=== PATIENT | female | born 1930 | race Caucasian/White ===

== ENCOUNTER 2020-06-05 14:47 | Observation (INO) | payer BC, MEDICARE ==
--- NOTE | 2020-06-05 15:00 | ER Document Report ---
ED Medical Screen (RME) - General Chief Complaint: High Blood Pressure Stated Complaint: BLOOD PRESSURE PROBLEMS Time Seen by Provider: 06/05/20 14:53 Mode of Arrival: Medic Information source: Patient, Relative, Emergency Med Personnel Notes: 89-year-old female presents to ED for elevated blood pressure. She is on the monitor. While watching the patient she is having strips of 45 V. tach with her A. fib. Have informed Dr. Alan and did have rapid ventricular response while watching the monitor. Has gone into see the patient. I have greeted and performed a rapid initial assessment of this patient. A comprehensive ED assessment and evaluation of the patient, analysis of test results and completion of medical decision making process will be conducted by an additional ED providers.
[2020-06-05] MEDS ORDERED: LORAZEPAM INJ 2 MG/1 ML VIAL IV ONE (15:05)
[2020-06-05] MEDS ORDERED: LEVETIRACETAM 500 MG/NACL-ISO 500 MG/100 ML RTUPB IV ONE (15:15)
[2020-06-05] MEDS ORDERED: METOPROLOL TARTRATE PF/INJ 5 MG/5 ML SDV IV ONE (15:15)
--- NOTE | 2020-06-05 15:38 | ER Document Report ---
ED General <CARLOS GONZALEZGA - Last Filed: 06/05/20 19:08> - General Mode of Arrival: Medic Information source: Relative Cannot obtain history due to: Altered mental status TRAVEL OUTSIDE OF THE [place] IN LAST 30 DAYS: No - Related Data Home Medications: duloxetina, micardis, namentine, atorvestatin, metoprolol, levetirac, asa <VIVIAN CARTAGENA - Last Filed: 06/09/20 16:00> - General Chief Complaint: High Blood Pressure Stated Complaint: BLOOD PRESSURE PROBLEMS Time Seen by Provider: 06/05/20 14:53 - HPI Notes: This patient is a 89-year-old female who recently moved to our area from [place] to be with her family for the winter. She evidently gets her medications from a mail order pharmacy. There has been some delay in getting the address on that account change and so she has not had any of her medicines in several days. Her gzcjcujf-nq-psm is here and is providing some information. She is not intimately familiar with the patient's medical history. For example she did not know that the patient was on an anticoagulant (Pradaxa) nor did she know that the patient was on an antiseizure medication (Keppra), nor did she know that the patient had a seizure disorder. Unfortunately the patient is unable to tell us much more than she knows her name and she is not in pain. The gjtypobx-gi-ike reports that the patient's mental status has been altered since this morning. Other than that very little history is available at this time. (VIVIAN CARTAGENA) - Related Data Allergies/Adverse Reactions: No Known Drug Allergies Allergy (Verified 06/05/20 19:11) Past Medical History - General Information source: Patient, Relative, Emergency Med Personnel - Social History Smoking Status: Unknown if Ever Smoked Frequency of alcohol use: None Drug Abuse: None Family History: Reviewed & Not Pertinent Patient has homicidal ideation: No - Medical History Medical History: Other <VIVIAN CARTAGENA - Last Filed: 06/09/20 16:00> - Medical History Notes: The patient has documents with her that include a medication list, some medical problems including notes referring to a stroke and to seizures, and a document that is a DO NOT RESUSCITATE form that appears to be signed in the patient's own handwriting. Additionally on her check list of medical conditions it shows her as being memory impaired, having a stroke, vision impaired, being hearing impai red, and having a DO NOT RESUSCITATE form. (VIVIAN CARTAGENA) Review of Systems - Review of Systems -: Yes ROS unobtainable due to patient's medical condition <VIVIAN CARTAGENA - Last Filed: 06/09/20 16:00> Physical Exam <VIVIAN CARTAGENA - Last Filed: 06/09/20 16:00> - Vital signs Vitals: Resp BP Pulse Ox 24 H 196/118 H 88 L 06/05/20 14:51 06/05/20 14:51 06/05/20 14:51 - Notes Notes: General: This is a very elderly, slightly built, frail appearing woman who appears chronically ill. Vital signs and nursing documentation are reviewed. HEENT: Patient normocephalic without trauma. Extraocular movements appear grossly intact. Pupils are equally reactive to light. ENT exam is otherwise grossly normal. Neck: Supple no adenopathy. Lungs: Fair air entry bilaterally. Heart: Tachycardic, irregularly irregular rate and rhythm, significant heave and thrill, audible coarse low pitched holosystolic murmur heard across the precordium. Abdomen: Scaphoid soft nontender no masses. Extremities: 1+ edema in both extremities. Skin: Warm, dry, relatively poor turgor. Neuro: The patient is alert and will answer simple questions such as what her name is. She exhibits repetitive bursts of rhythmic twitching motions of both her left leg and foot and her left forearm and hand which appear to be partial motor seizures. These episodes last anywhere from 1 to 3 minutes seem to stop spontaneously and then recur. She has at this time will discharge with return precautions and follow-up recommendations. Verbal discharge instructions given a the bedside and opportunity for questions given. Medication warnings reviewed. Patient is in agreement with this plan and has verbalized understanding of return precautions and the need for primary care follow-up in the next 24-72 hours. Generalized seizure activity. She is not able to cooperate with neuro exam otherwise. (VIVIAN CARTAGENA) Course - Laboratory Results Result Diagrams: 06/05/20 15:28 06/05/20 15:28 <LOUISA GONZALEZ - Last Filed: 06/05/20 19:08> - Laboratory Results Result Diagrams: 06/06/20 08:04 06/06/20 08:04 Critical Laboratory Results Reviewed: No Critical Results - Radiology Results Critical Radiology Results Reviewed: No Critical Results <VIVIAN CARTAGENA - Last Filed: 06/09/20 16:00> - Re-evaluation Re-evalutation: 06/05/20 15:48 At this point is the end of my shift. Care of the patient was taken over by Dr. Gonzalez. (VIVIAN CARTAGENA) - Vital Signs Vital signs: Temp Pulse Resp BP Pulse Ox 97.3 F 86 15 127/92 H 95 06/06/20 14:00 06/06/20 14:00 06/06/20 14:00 06/06/20 14:00 06/06/20 14:00 - Laboratory Results Laboratory Results Interpreted: 06/05/20 06/05/20 15:28 15:28 Sodium 133.3 L Creatinine 0.50 L Glucose 146 H AST 67 H ALT 37 H Levetiracetam 1.8 L Discharge - Discharge Admitting Provider: Obayomi (Hospitalist) Unit Admitted: Medical Floor <LOUISA OGNZALEZ - Last Filed: 06/05/20 19:08> - Discharge Admitting Provider: Obayomi (Hospitalist) Unit Admitted: Medical Floor <VIVIAN CARTAGENA - Last Filed: 06/09/20 16:00> - Discharge Clinical Impression: Seizure Altered mental status Qualifiers: Altered mental status type: unspecified Qualified Code(s): R41.82 - Altered mental status, unspecified Condition: Stable Disposition: ADMITTED OBSERVATION
[2020-06-05 15:40] LABS: ABSOLUTE BASOPHILS # (AUTO) 0.1 10^3/uL (0.0-0.2); ABSOLUTE EOSINOPHILS # (AUTO) 0.1 10^3/uL (0.0-0.6); ABSOLUTE LYMPHOCYTES (AUTO) 1.6 10^3/uL (0.5-4.7); ABSOLUTE MONOCYTES (AUTO) 0.6 10^3/uL (0.1-1.4); ABSOLUTE NEUT (AUTO) 6.7 10^3/uL (1.7-8.2); BASOPHILS % (AUTO) 0.7 % (0-2); EOSINOPHILS % (AUTO) 0.6 % (0-6); HEMATOCRIT 38.1 % (36.0-47.0); HEMOGLOBIN 12.9 g/dL (12.0-15.5); MEAN CORPUSCULAR HEMOGLOBIN 31.9 pg (27.0-33.4); MEAN CORPUSCULAR HGB CONC 33.9 g/dL (32.0-36.0); MEAN CORPUSCULAR VOLUME 94 fl (80-97); MONOCYTES % (AUTO) 6.1 % (3-13); PLATELET COUNT 240 10^3/uL (150-450); RED BLOOD COUNT 4.05 10^6/uL (3.72-5.28); RED CELL DISTRIBUTION WIDTH 13.8 % (11.5-14.0); SEGMENTED NEUTROPHILS % (AUTO) 74.6 % (42-78); TOTAL CELLS COUNTED % (AUTO) 100 %
[2020-06-05 16:02] LABS: ALKALINE PHOSPHATASE 125 U/L (38-126); ANION GAP 5 (5-19); ASPARTATE AMINO TRANSFERASE 67 U/L (14-36); BILIRUBIN,DIRECT 0.1 mg/dL (0.0-0.4); BILIRUBIN,TOTAL 0.5 mg/dL (0.2-1.3); BLOOD UREA NITROGEN 10 mg/dL (7-20); CALCIUM 9.2 mg/dL (8.4-10.2); CARBON DIOXIDE 29 mmol/L (22-30); CHLORIDE 99 mmol/L (98-107); GLUCOSE 146 mg/dL (75-110); POTASSIUM 4.4 mmol/L (3.6-5.0); TOTAL PROTEIN 6.8 g/dL (6.3-8.2)
[2020-06-05 16:07] LABS: INTERNATIONAL RATION (INR) 0.99; PROTHROMBIN TIME 13.3 SEC (11.4-15.4)
--- NOTE | 2020-06-05 16:22 | RADIOLOGY REPORT (SQ) ---
EXAM DESCRIPTION: CHEST SINGLE VIEW IMAGES COMPLETED DATE/TIME: 06/05/2020 4:13 pm REASON FOR STUDY: Short of breath atrial fibrillation COMPARISON: None. EXAM PARAMETERS: NUMBER OF VIEWS: One view. TECHNIQUE: Single frontal radiographic view of the chest acquired. RADIATION DOSE: NA LIMITATIONS: None. FINDINGS: LUNGS AND PLEURA: No opacities, masses or pneumothorax. No pleural effusion. MEDIASTINUM AND HILAR STRUCTURES: No masses. Contour normal. HEART AND VASCULAR STRUCTURES: Heart normal in size. Normal vasculature. BONES: No acute findings. HARDWARE: None in the chest. OTHER: No other significant finding. IMPRESSION: NO ACUTE RADIOGRAPHIC FINDING IN THE CHEST. TECHNICAL DOCUMENTATION: JOB ID: [id number] 2010 [employer]- All Rights Reserved Reading location - IP/workstation name: [email or web address]
--- NOTE | 2020-06-05 16:51 | RADIOLOGY REPORT (SQ) ---
EXAM DESCRIPTION: CT HEAD WITHOUT IMAGES COMPLETED DATE/TIME: 06/05/2020 3:29 pm REASON FOR STUDY: seizure, confusion. COMPARISON: None. TECHNIQUE: Axial images acquired through the brain without intravenous contrast. Images reviewed wi th bone, brain and subdural windows. Additional sagittal and coronal reconstructions were generated. Images stored on PACS. All CT scanners at this facility use dose modulation, iterative reconstruction, and/or weight based d osing when appropriate to reduce radiation dose to as low as reasonably achievable (ALARA). [facility]: Dose Right [facility]: CareDose [facility]: Dose Right [facility]: Teradose 4D [facility]: [employer] RADIATION DOSE: CT Rad equipment meets quality standard of care and radiation dose reduction techniq ues were employed. CTDIvol: 53.2 mGy. DLP: 964 mGy-cm. mGy. LIMITATIONS: None. FINDINGS: VENTRICLES: Normal size and contour. CEREBRUM: No masses. No hemorrhage. No midline shift. No evidence for acute infarction. There is c hronic encephalomalacia and gliosis in the right temporoparietal region consistent with prior right M CA infarct. Moderate patchy periventricular, deep, and subcortical white matter hypodense attenuatio n consistent with moderate chronic small vessel ischemic change. Otherwise normal rubalcava-white matter differentiation. There is intracranial atherosclerosis. CEREBELLUM: No masses. No hemorrhage. No alteration of density. No evidence for acute infarction. EXTRAAXIAL SPACES: No fluid collections. No masses. ORBITS AND GLOBE: No intra- or extraconal masses. Normal contour of globe without masses. CALVARIUM: No fracture. PARANASAL SINUSES: No fluid or mucosal thickening. SOFT TISSUES: No mass or hematoma. OTHER: No other significant finding. IMPRESSION: 1. No acute intracranial hemorrhage, mass, or evidence of acute territorial infarct. 2. Chronic right MCA infarct. 3. Moderate chronic small vessel ischemic change and intracranial atherosclerosis. EVIDENCE OF ACUTE STROKE: NO. COMMENT: Quality ID # [id number]: Final reports with documentation of one or more dose reduction techniques (e.g., Automated exposure control, adjustment of the mA and/or kV according to patient size, use of iterative reconstruction technique) TECHNICAL DOCUMENTATION: JOB ID: [id number] 2010 [employer]- All Rights Reserved Reading location - IP/workstation name: [email or web address]
--- NOTE | 2020-06-05 17:59 | ER Document Report ---
Doctor's Note Notes: 06/05/20 17:56 Patient was signed out to me. She is visiting from out of town and has been without her chronic medications. History is provided by her olagdwlx-io-pas. I personally evaluated the patient. Her heart rate has improved to normal. Her blood pressure has also stabilized. Patient is postictal on exam, she does arouse to stimuli. I discussed all results with the [id number]. I recommended admission to the hospital for observation to make sure that she returns to normal. Patient is a DNR. Her first troponin is slightly elevated. Likely this is from her tachycardia. I repeated the troponin and an EKG. Repeat EKG shows atrial fibrillation at a rate of 93. PVCs present. QTc 443. No acute ST changes. I discussed with the hospitalist for admission.
[2020-06-05] MEDS ORDERED: IPRATROPIUM/ALBUTEROL 0.5-2.5 MG/3 ML AMPUL NEB PRN (18:08)
[2020-06-05] MEDS ORDERED: ACETAMINOPHEN 650 MG SUPP.RECT PR PRN (18:08)
[2020-06-05] MEDS ORDERED: DIAZEPAM INJ 10 MG/2 ML DISP.SYRIN IV PRN (18:36)
--- NOTE | 2020-06-05 18:36 | PDOC H&P ---
History of Present Illness Admission Date/PCP: June 05, 2020 Patient complains of: Patient presents to the emergency room apparently for unclear reasons as she is unable to provide any history due to her altered menta l status. Her ckctcbbx-sz-lfq is with her who states that patient has been altered since this morning other than that there are little history is available. History of Present Illness: RENETTA HASKINS is a 89 year old female Patient is actually visiting from [place]. She has pain in this area few days before and was scheduled to go back this weekend. She gets her mail from medications from a mail order and she has been out for the last 2 days. Review of the ED records show that patient presented with some medical information including a history of a stroke vision impairment hearing impaired and a DO NOT RESUSCITATE form that appeared to be signed in the patient's own handwriting. It appears that she was awake and alert when she came into the emergency room but she did appear to have some partial motor seizures with episodes lasting anywhere from 1 to 3 minutes she was given Keppra in the emergency room and actually by the time I saw her she was briskly postictal. It appears that she had also vomited during this time as the stretcher was soaked w ith emesis. She was also found to be in atrial tachycardia, supraventricular tachycardia with. PVCs and ST depression. Repeat EKG shows atrial fibrillation with a rate of about 93. It is unknown if patient has a prior history of atrial fibrillation initial troponin is slightly elevated at 0.0 60 and a repeat troponin is pending for the this evening in the emergency room and she received some metoprolol with a rate improving Past Medical History Neurological Medical History: Reports: Ischemic CVA, Seizures Past Surgical History Past Surgical History: Reports: Other - Unknown Social History Information Source: Relative Lives with: Family Smoking Status: Unknown if Ever Smoked - Advance Directive Resuscitation Status: Do Not Resuscitate Family History Family History: Other - Unknown Parental Family History Reviewed: No Children Family History Reviewed: No Sibling(s) Family History Reviewed.: No - Patient unable to provide any information Review of Systems ROS unobtainable: Due to mental status - Patient is currently postictal and family at bedside unable to provide information Physical Exam Vital Signs: Temp Pulse Resp BP Pulse Ox 21 H 147/94 H 96 06/05/20 15:50 06/05/20 15:50 06/05/20 15:50 Intake & Output 06/04/20 06/05/20 06/06/20 06:59 06:59 06:59 Intake Total 100 Balance 100 General appearance: PRESENT: no acute distress, thin - Elderly frail female Head exam: PRESENT: atraumatic Eye exam: PRESENT: PERRLA. ABSENT: scleral icterus Ear exam: PRESENT: normal external ear exam Mouth exam: PRESENT: moist Teeth exam: PRESENT: poor dentation Neck exam: ABSENT: carotid bruit, JVD, lymphadenopathy, thyromegaly Respiratory exam: PRESENT: clear to auscultation cedric, unlabored. ABSENT: rales, rhonchi, wheezes Cardiovascular exam: PRESENT: irregular rhythm. ABSENT: diastolic murmur, rubs, systolic murmur Pulses: PRESENT: normal dorsalis pedis pul Vascular exam: PRESENT: normal capillary refill GI/Abdominal exam: PRESENT: normal bowel sounds, soft. ABSENT: distended, guarding, mass, organolmegaly, rebound, tenderness Rectal exam: PRESENT: deferred Extremities exam: ABSENT: calf tenderness, clubbing, pedal edema Neurological exam: PRESENT: altered, other - Response to pain. ABSENT: motor sensory deficit Psychiatric exam: ABSENT: homicidal ideation, suicidal ideation Skin exam: PRESENT: dry, intact. ABSENT: cyanosis, rash Results Laboratory Results: 06/05/20 15:28 06/05/20 15:28 06/05/20 06/05/20 15:28 15:28 WBC 9.0 RBC 4.05 Hgb 12.9 Hct 38.1 MCV 94 MCH 31.9 MCHC 33.9 RDW 13.8 Plt Count 240 Seg Neutrophils % 74.6 Sodium 133.3 L Potassium 4.4 Chloride 99 Carbon Dioxide 29 Anion Gap 5 BUN 10 Creatinine 0.50 L Est GFR ( Amer) > 60 Glucose 146 H Calcium 9.2 Magnesium 2.0 Total Bilirubin 0.5 AST 67 H Alkaline Phosphatase 125 Total Protein 6.8 Albumin 4.0 06/05/20 15:28 Troponin I 0.062 Impressions: Chest X-Ray 06/05/20 14:56 IMPRESSION: NO ACUTE RADIOGRAPHIC FINDING IN THE CHEST. Head CT 06/05/20 15:23 IMPRESSION: 1. No acute intracranial hemorrhage, mass, or evidence of acute territorial infarct. 2. Chronic right MCA infarct. 3. Moderate chronic small vessel ischemic change and intracranial at herosclerosis. EVIDENCE OF ACUTE STROKE: NO. Assessment and Plan - Diagnosis (1) Seizure Is this a current diagnosis for this admission?: Yes (2) Atrial fibrillation with rapid ventricular response Is this a current diagnosis for this admission?: Yes (3) Do not resuscitate status Is this a current diagnosis for this admission?: Yes (4) Hypertensive urgency, malignant Is this a current diagnosis for this admission?: Yes - Plan Summary Summary: patient's information is complete however it appears that she had been out of her Keppra for a couple of days and she had suffered seizures in the emergency room at least. She was postictal at the time of my exam. He was given Keppra and she did not have an episode of vomiting. She will be kept n.p.o., placed on seizure precautions, will continue with Keppra IV, will have Ativan available as needed. Urinalysis will be checked and will follow up with repeat labs in a.m. At this time I see no evidence of any infection. Of course of concern is the episode of vomiting that she had and so we have to watch out for aspiration. No prophylactic take antibiotic needed at this time. Patient also noted to be in atrial fibrillation. It is unclear if this is new or not. She apparently is on Pradaxa chronically may be she does have a prior history Patient also has hypertensive emergency with endorgan damage. It is possible that uncontrolled blood pressure led to a breakthrough seizure. She did receive some metoprolol with improvement in her blood pressure. We will continue to monitor her. - Time Time Spent with patient: 25-34 minutes Medications reviewed and adjusted accordingly: Yes Anticipated Discharge Disposition: Home with Home Health Anticipated Discharge Timeframe: within 48 hours
--- NOTE | 2020-06-05 18:38 | Progress Note ---
Provider Note Provider Note: Troponin also noted to be elevated and this could be due to her acute illness and presentation as well as her tachycardia. Will follow serial troponins. Given patient's age and comorbidity DO NOT RESUSCITATE status I do not anticipate any further interventions planned
[2020-06-05] MEDS: METOPROLOL TARTRATE PF/INJ 5 MG/5 ML SDV IV SCH ×2 (19:44→23:15)
[2020-06-05 20:36] LABS: APPEARANCE,URINE SLIGHTLY-CLOUDY; BILIRUBIN,URINE NEGATIVE (NEGATIVE); GLUCOSE, URINE NEGATIVE (NEGATIVE); KETONES,URINE TRACE mg/dL (NEGATIVE); LEUKOCYTE ESTERASE,URINE NEGATIVE (NEGATIVE); NITRITE,URINE NEGATIVE (NEGATIVE); PROTEIN,URINE 100 mg/dL (NEGATIVE); URINE SPECIFIC GRAVITY 1.026
[2020-06-05 20:37] LABS: COLOR,URINE YELLOW
[2020-06-05] MEDS: ONDANSETRON HCL INJ/PF 4 MG/2 ML SDV IV PRN (21:42)
[2020-06-05] MEDS: NORMAL SALINE 1000 ML 1,000 ML IV PRN (22:06)
[2020-06-05] MEDS: LEVETIRACETAM 500 MG/NACL-ISO 500 MG/100 ML RTUPB IV SCH (22:06)
[2020-06-06] MEDS ORDERED: METOPROLOL TARTRATE PF/INJ 5 MG/5 ML SDV IV ONE (01:02)
[2020-06-06] MEDS ORDERED: ASPIRIN 81 MG TABLET, CHEWABLE PO ONE (03:10)
[2020-06-06] MEDS: METOPROLOL TARTRATE PF/INJ 5 MG/5 ML SDV IV SCH ×2 (05:45→11:08)
[2020-06-06] MEDS: ONDANSETRON HCL INJ/PF 4 MG/2 ML SDV IV PRN (06:13)
[2020-06-06 08:32] LABS: HEMATOCRIT 38.8 % (36.0-47.0); HEMOGLOBIN 12.9 g/dL (12.0-15.5); MEAN CORPUSCULAR HEMOGLOBIN 31.2 pg (27.0-33.4); MEAN CORPUSCULAR HGB CONC 33.3 g/dL (32.0-36.0); MEAN CORPUSCULAR VOLUME 94 fl (80-97); PLATELET COUNT 225 10^3/uL (150-450); RED BLOOD COUNT 4.13 10^6/uL (3.72-5.28); RED CELL DISTRIBUTION WIDTH 13.8 % (11.5-14.0); WHITE BLOOD COUNT 6.7 10^3/uL (4.0-10.5)
[2020-06-06 08:57] LABS: ANION GAP 8 (5-19); BLOOD UREA NITROGEN 12 mg/dL (7-20); CALCIUM 9.4 mg/dL (8.4-10.2); CARBON DIOXIDE 24 mmol/L (22-30); CHLORIDE 100 mmol/L (98-107); GLUCOSE 139 mg/dL (75-110)
[2020-06-06] MEDS ORDERED: PANTOPRAZOLE SODIUM 40 MG VIAL IV SCH (10:00)
[2020-06-06] MEDS ORDERED: ASPIRIN 81 MG TABLET, CHEWABLE PO SCH (10:00)
[2020-06-06] MEDS ORDERED: ENOXAPARIN SODIUM INJ 40 MG/0.4 ML DISP.SYRIN SUBCUT SCH (10:00)
[2020-06-06] MEDS: LEVETIRACETAM 500 MG/NACL-ISO 500 MG/100 ML RTUPB IV SCH (10:56)
[2020-06-06] MEDS: NORMAL SALINE 1000 ML 1,000 ML IV PRN (10:58)
[2020-06-06] MEDS ORDERED: ACETAMINOPHEN 325 MG TABLET ONE (11:27)
[2020-06-06] MEDS ORDERED: ACETAMINOPHEN 325 MG TABLET PO PRN (11:37)
[2020-06-06] MEDS ORDERED: LEVETIRACETAM 500 MG TABLET PO SCH (13:00)
--- NOTE | 2020-06-06 13:04 | PDOC DISCHARGE SUMMARY ---
Impression - Admit/DC Date/PCP Admission Date/Primary Care Provider: 06/05/20 19:08 Discharge Date: 06/06/20 - Discharge Diagnosis (1) Seizure Is this a current diagnosis for this admission?: Yes (2) Atrial fibrillation with rapid ventricular response Is this a current diagnosis for this admission?: Yes (3) Do not resuscitate status Is this a current diagnosis for this admission?: Yes (4) Hypertensive urgency, malignant Is this a current diagnosis for this admission?: Yes (5) Elevated troponin level Is this a current diagnosis for this admission?: Yes - Assessment Summary: patient's information is complete however it appears that she had been out of her Keppra for a couple of days and she had suffered seizures in the emergency room at least. She was postictal at the time of my exam. He was given Keppra and she did not have an episode of vomiting. She will be kept n.p.o., placed on seizure precautions, will continue with Keppra IV, will have Ativan available as needed. Urinalysis will be checked and will follow up with repeat labs in a.m. At this time I see no evidence of any infection. Of course of concern is the episode of vomiting that she had and so we have to watch out for aspiration. No prophylactic take antibiotic needed at this time. Patient also noted to be in atrial fibrillation. It is unclear if this is new or not. She apparently is on Pradaxa chronically may be she does have a prior history Patient also has hypertensive emergency with endorgan damage. It is possible that uncontrolled blood pressure led to a breakthrough seizure. She did receive some metoprolol with improvement in her blood pressure. We will continue to monitor her. - Additional Information Resuscitation Status: Do Not Resuscitate Discharge Activity: Activity As Tolerated Home Medications: Aspirin [Aspirin 81 mg Chewable Tablet] 81 mg PO DAILY 06/05/20 Atorvastatin Calcium [Lipitor 40 mg Tablet] 40 mg PO QHS 06/05/20 Digoxin 125 mcg PO .THREE TIMES A WEEK 06/05/20 Duloxetine HCl [Cymbalta 30 mg Capsule.dr] 30 mg PO DAILY 06/05/20 Levetiracetam [Keppra Xr 500 mg Tab.sr] 500 mg PO Q12 06/05/20 Memantine HCl [Namenda] 5 mg PO Q12 06/05/20 Metoprolol Tartrate [Lopressor 50 mg Tablet] 50 mg PO Q12 06/05/20 Rivaroxaban [Xarelto 15 mg Tablet] 15 mg PO DAILY 06/05/20 Telmisartan 40 mg PO DAILY 06/05/20 History of Present Illiness History of Present Illness: RENETTA HASKINS is a 89 year old female Patient is actually visiting from [place]. She has pain in this area few days before and was scheduled to go back this weekend. She gets her mail from medications from a mail order and she has been out for the last 2 days. Review of the ED records show that patient presented with some medical information including a history of a stroke vision impairment hearing impaired and a DO NOT RESUSCITATE form that appeared to be signed in the patient's own handwriting. It appears that she was awake and alert when she came into the emergency room but she did appear to have some partial motor seizures with episodes lasting anywhere from 1 to 3 minutes she was given Keppra in the emergency room and actually by the time I saw her she was briskly postictal. It appears that she had also vomited during this time as the stretcher was soaked with emesis. She was also found to be in atrial tachycardia, supraventricular tachycardia with. PVCs and ST depression. Repeat EKG shows atrial fibrillation with a rate of about 93. It is unknown if patient has a prior history of atrial fibrillation initial troponin is slightly elevated at 0.0 60 and a repeat troponin is pending for the this evening in the emergency room and she received some metoprolol with a rate improving Hospital Course Hospital Course: Patient was admitted with what appears to be partial epileptic seizures. She does have a history of seizure disorder. She had apparently been out of her medications for about 48 hours according to the family. She was also found to be in atrial fibrillation with a rapid ventricular response. This likely is secondary to patient being off her medications. Review of her medications indicate that she had been on digoxin as well as Xarelto and metoprolol which she had apparently missed. She was also found to be hypertensive emergency secondary to missing her medications. Patient was admitted in a post ictal state but she has had no further seizure activity once started on Keppra. She was treated with metoprolol and her blood pressure has been pretty much better controlled. Patient was found to have an elevated troponin. She has no symptoms of chest pain. It is possible that the elevated troponin is likely due to her atrial tachycardia. Hypertensive emergency and a seizure activity. Given patient's DNR status and the fact that she lacks any chest pain no acute intervention is being planned. I did discuss this with the family at the bedside. She will be encouraged to continue with her aspirin as per prehospitalization. Patient is awake and alert and appears to be back to her baseline mental status and at this point with no further interventions been planned in the hospital she has been discharged home Physical Exam Vital Signs: Temp Pulse Resp BP Pulse Ox 97.3 F 86 15 129/83 H 95 06/06/20 12:04 06/06/20 12:04 06/06/20 12:04 06/06/20 12:04 06/06/20 12:04 Intake & Output 06/05/20 06/06/20 06/07/20 06:59 06:59 06:59 Intake Total 200 965 Balance 200 965 Weight 47.7 kg General appearance: PRESENT: no acute distress, other - Elderly and frail Head exam: PRESENT: atraumatic, normocephalic Eye exam: PRESENT: conjunctiva pink, EOMI, PERRLA. ABSENT: scleral icterus Mouth exam: PRESENT: moist, tongue midline Neck exam: ABSENT: carotid bruit, JVD, lymphadenopathy, thyromegaly Respiratory exam: PRESENT: clear to auscultation cedric. ABSENT: rales, rhonchi, wheezes Cardiovascular exam: PRESENT: irregular rhythm, +S1, +S2. ABSENT: diastolic murmur, rubs, systolic murmur Pulses: PRESENT: normal dorsalis pedis pul Vascular exam: PRESENT: normal capillary refill GI/Abdominal exam: PRESENT: normal bowel sounds, soft. ABSENT: distended, guarding, mass, organolmegaly, rebound, tenderness Rectal exam: PRESENT: deferred Extremities exam: PRESENT: full ROM. ABSENT: calf tenderness, clubbing, pedal edema Neurological exam: PRESENT: alert, awake, oriented to person, oriented to place, oriented to time, oriented to situation, CN II-XII grossly intact. ABSENT: motor sensory deficit Psychiatric exam: PRESENT: appropriate affect, normal mood. ABSENT: homicidal ideation, suicidal ideation Skin exam: PRESENT: dry, intact, warm. ABSENT: cyanosis, rash Results Laboratory Results: WBC 6.7 10^3/uL (4.0-10.5) 06/06/20 08:04 RBC 4.13 10^6/uL (3.72-5.28) 06/06/20 08:04 Hgb 12.9 g/dL (12.0-15.5) 06/06/20 08:04 Hct 38.8 % (36.0-47.0) 06/06/20 08:04 MCV 94 fl (80-97) 06/06/20 08:04 MCH 31.2 pg (27.0-33.4) 06/06/20 08:04 MCHC 33.3 g/dL (32.0-36.0) 06/06/20 08:04 RDW 13.8 % (11.5-14.0) 06/06/20 08:04 Plt Count 225 10^3/uL (150-450) 06/06/20 08:04 Lymph % (Auto) 18.0 % (13-45) 06/05/20 15:28 [place] % (Auto) 6.1 % (3-13) 06/05/20 15:28 Eos % (Auto) 0.6 % (0-6) 06/05/20:28 Baso % (Auto) 0.7 % (0-2) 06/05/20 15:28 Absolute Neuts (auto) 6.7 10^3/uL (1.7-8.2) 06/05/20 15:28 Absolute Lymphs (auto) 1.6 10^3/uL (0.5-4.7) 06/05/20 15:28 Absolute Monos (auto) 0.6 10^3/uL (0.1-1.4) 06/05/20 15:28 Absolute Eos (auto) 0.1 10^3/uL (0.0-0.6) 06/05/20:28 Absolute Basos (auto) 0.1 10^3/uL (0.0-0.2) 06/05/20:28 Seg Neutrophils % 74.6 % (42-78) 06/05/20 15:28 Platelet Estimate Cancelled 06/06/20 07:16 PT 13.3 SEC (11.4-15.4) 06/05/20 15:28 INR 0.99 06/05/20 15:28 APTT 30.0 SEC (23.5-35.8) 06/05/20 15:28 Sodium 132.3 mmol/L (137-145) L 06/06/20 08:04 Potassium 5.0 mmol/L (3.6-5.0) 06/06/20 08:04 Chloride 100 mmol/L (98-107) 06/06/20 08:04 Carbon Dioxide 24 mmol/L (22-30) 06/06/20 08:04 Anion Gap 8 (5-19) 06/06/20 08:04 BUN 12 mg/dL (7-20) 06/06/20 08:04 Creatinine 0.58 mg/dL (0.52-1.25) 06/06/20 08:04 Est GFR ( Amer) > 60 (>60) 06/06/20 08:04 Est GFR (Non-Af Amer) Cancelled 06/06/20 07:16 Est GFR (MDRD) Non-Af > 60 (>60) 06/06/20 08:04 Glucose 139 mg/dL (75-110) H 06/06/20 08:04 Calcium 9.4 mg/dL (8.4-10.2) 06/06/20 08:04 Magnesium 1.9 mg/dL (1.6-2.3) 06/06/20 08:04 Total Bilirubin 0.5 mg/dL (0.2-1.3) 06/05/20 15:28 Direct Bilirubin 0.1 mg/dL (0.0-0.4) 06/05/20 15:28 Neonat Total Bilirubin Not Reportable 06/05/20 15:28 Neonat Direct Bilirubin Not Reportable 06/05/20 15:28 Neonat Indirect Bili Not Reportable 06/05/20 15:28 AST 67 U/L (14-36) H 06/05/20 15:28 ALT 37 U/L (<35) H 06/05/20 15:28 Alkaline Phosphatase 125 U/L (38-126) 06/05/20 15:28 Troponin I 1.470 ng/mL 06/06/20 08:04 Total Protein 6.8 g/dL (6.3-8.2) 06/05/20 15:28 Albumin 4.0 g/dL (3.5-5.0) 06/05/20 15:28 EGFR Cancelled 06/06/20 07:16 Urine Color YELLOW 06/05/20 19:53 Urine Appearance SLIGHTLY-CLOUDY 06/05/20 19:53 Urine pH 5.0 (5.0-9.0) 06/05/20 19:53 Ur Specific [place] 1.026 06/05/20 19:53 Urine Protein 100 mg/dL (NEGATIVE) H 06/05/20 19:53 Urine Glucose (UA) NEGATIVE mg/dL (NEGATIVE) 06/05/20 19:53 Urine Ketones TRACE mg/dL (NEGATIVE) H 06/05/20 19:53 Urine Blood NEGATIVE (NEGATIVE) 06/05/20 19:53 Urine Nitrite NEGATIVE (NEGATIVE) 06/05/20 19:53 Urine Bilirubin NEGATIVE (NEGATIVE) 06/05/20 19:53 Urine Urobilinogen 2.0 mg/dL (<2.0) H 06/05/20 19:53 Ur Leukocyte Esterase NEGATIVE (NEGATIVE) 06/05/20 19:53 Urine WBC (Auto) 0 /HPF 06/05/20 19:53 Urine RBC (Auto) 3 /HPF 06/05/20 19:53 U Hyaline Cast (Auto) 1 /LPF 06/05/20 19:53 Squamous Epi Cells Auto <1 /HPF 06/05/20 19:53 Urine Mucus (Auto) RARE /LPF 06/05/20 19:53 Urine Ascorbic Acid NEGATIVE (NEGATIVE) 06/05/20 19:53 Slides for Path Review Cancelled 06/06/20 07:16 06/05/20 06/05/20 06/06/20 15:28 20:00 01:41 Troponin I 0.062 0.368 1.040 06/06/20 06/06/20 07:16 08:04 Troponin I Cancelled 1.470 EKG Comments: Atrial fibrillation with multiple PVCs Impressions: Chest X-Ray 06/05/20 14:56 IMPRESSION: NO ACUTE RADIOGRAPHIC FINDING IN THE CHEST. Head CT 06/05/20 15:23 IMPRESSION: 1. No acute intracranial hemorrhage, mass, or evidence of acute territorial infarct. 2. Chronic right MCA infarct. 3. Moderate chronic small vessel ischemic change and intracranial atherosclerosis. EVIDENCE OF ACUTE STROKE: NO. Plan Health Concerns: Patient to resume her prehospitalization medications. We will have her clarify that she has them in hand now and family is advised to ensure that she uses her medications Time Spent: Less than 30 Minutes Stroke Is this a Stroke Patient?: No Acute Heart Failure Is this a Heart Failure Patient?: No
--- NOTE | 2020-06-06 13:37 | EKG REPORT ---
SEVERITY:- ABNORMAL ECG - ATRIAL FIBRILLATION LEFT AXIS DEVIATION ANTERIOR INFARCT, OLD : Confirmed by: Flora Wiley 06-Jun-2020 13:37:19
--- NOTE | 2020-06-06 13:38 | EKG REPORT ---
SEVERITY:- ABNORMAL ECG - SUPRAVENTRICULAR TACHYCARDIA VENTRICULAR TRIPLETS X 2 LEFT AXIS DEVIATION CONSIDER ANTEROSEPTAL INFARCT ST DEPRESSION, PROBABLY RATE RELATED : Confirmed by: Flora Wiley 06-Jun-2020 13:38:11
[2020-06-06 14:03] VITALS: BP 127/92
[2020-06-07] MEDS ORDERED: ASPIRIN 81 MG TABLET, CHEWABLE PO SCH (10:00)
== END 2020-06-06 16:15 | disposition home or self-care (01) ==
LOC: ER 14:47 → EH 19:08 → 4N 20:27
PROVIDERS: ADMIT Internal Medicine; ATTEND Internal Medicine
DX: G40.909 Epilepsy, unspecified, not intractable, without status epilepticus (principal); I48.91 Unspecified atrial fibrillation; Z66 Do not resuscitate; I16.0 Hypertensive urgency; R79.89 Other specified abnormal findings of blood chemistry; Z86.73 Personal history of transient ischemic attack (TIA), and cerebral infarction without residual deficits; Z79.899 Other long term (current) drug therapy; Z79.01 Long term (current) use of anticoagulants
CPT/HCPCS: 93005; 99285; 96375; 96365; 36415 ×2; 80177; 83735 ×2; 85025; 85027; 85610; 85730; 80048; 80053; 81001; 84484 ×2; 71045; 70450; 93010; G0378 ×3; A9270 ×3; J3490 ×2; J1650; J2060; C9113; J2405 ×2; J7030 ×2; J1953